=== PATIENT | female | born 1995 | race Two or more races ===

== ENCOUNTER 2023-12-18 15:15 | Emergency (ER) | payer OTHER ==
[~2023-12-18] VITALS: Ht 162.6 cm; Wt 72.6 kg
[2023-12-18] MEDS ORDERED: PROSAC (15:20)
[2023-12-18] MEDS ORDERED: LEVOTHYROXINE25 MCG (15:20)
[2023-12-18] MEDS ORDERED: TRAZODONE HCL5 GM (15:20)
[2023-12-18] MEDS ORDERED: CLONAZEPAM0.125 MG (15:20)
[2023-12-18] MEDS ORDERED: FAMOtidine 10 MG/ML (4ML VIAL) IV PUSH ONE (16:15)
[2023-12-18] MEDS ORDERED: METHYLPREDNISOLONE SOD SUCC 125 MG VIAL IV ONE (16:15)
[2023-12-18] MEDS ORDERED: KETOROLAC TROMETHAMINE 30 MG VIAL IV ONE (16:15)
[2023-12-18] MEDS ORDERED: 0.9 % SODIUM CHLORIDE 1,000 ML IV SCH (16:30)
[2023-12-18] MEDS ORDERED: ONDANSETRON HCL 2 MG/ML VIAL IV ONE (16:30)
[2023-12-18 17:14] LABS: HEMATOCRIT 28.8 % (36.0-45.00); HEMOGLOBIN 9.4 g/dL (12.0-15.00); MEAN CORPUSCULAR HEMOGLOBIN 19.6 pg (27.00-32.0); MEAN CORPUSCULAR HGB CONC 32.5 g/dl (32.0-36.0); RED BLOOD COUNT 4.79 M/uL (4.00-6.00); RED CELL DISTRIBUTION WIDTH 17.3 % (11.5-14.5)
[2023-12-18 17:22] LABS: ALBUMIN 3.7 gm/dL (3.4-5.0); BILIRUBIN TOTAL 0.98 mg/dL (0.3-1.2); BILIRUBIN,CONJUGATED 0.25 mg/dL (0.0-0.2); BILIRUBIN,UNCONJUGATED 0.73 mg/dL (0.0-0.6); CALCIUM 9.2 mg/dL (8.5-10.1); CREATININE SERUM 0.6 mg/dL (0.55-1.02); GFR 118.19; GLOBULINA 3.2 G/DL (2.4-3.5); POTASSIUM 4.28 mEq/L (3.5-5.1); TOTAL PROTEIN 6.9 gm/dL (6.4-8.2); TSH 2.38 uIU/mL (0.358-3.74)
[2023-12-18 17:33] LABS: MEAN CELL VOLUME 60.1 fL (80.00-100.00)
[2023-12-18 17:34] LABS: PLATELET COUNT 389 K/uL (150-450)
[2023-12-18] MEDS ORDERED: LEVSIN/SL0.125 MG SL (20:10)
[2023-12-18] MEDS ORDERED: CARAFATE1 GM PO (20:10)
[2023-12-18] MEDS ORDERED: PEPCID AC20 MG PO (20:10)
[2023-12-18] MEDS ORDERED: HYOSCYAMINE SULFATE 0.125 MG TAB.SUBL SL ONE (20:15)
== END 2023-12-18 20:14 | disposition home or self-care (01) ==
LOC: ER 15:16
PROVIDERS: General Practice
DX: K80.20 Calculus of gallbladder without cholecystitis without obstruction (principal); K29.70 Gastritis, unspecified, without bleeding

== ENCOUNTER 2024-01-03 14:01 | Emergency (ER) | payer OTHER ==
[~2024-01-03] VITALS: Ht 162.6 cm; Wt 68.0 kg
[~2024-01-03 14:01] MED LIST: CARAFATE1 GM PO; CLONAZEPAM0.125 MG; LEVOTHYROXINE25 MCG; LEVSIN/SL0.125 MG SL; PEPCID AC20 MG PO; PROSAC; TRAZODONE HCL5 GM
[2024-01-03] MEDS ORDERED: PROZAC20 MG (14:37)
[2024-01-03] MEDS ORDERED: TRAZODONE HCL50 MG (14:38)
[2024-01-03] MEDS ORDERED: SYNTHROID50 MCG (14:38)
[2024-01-03] MEDS ORDERED: ONDANSETRON HCL 2 MG/ML VIAL IV ONE (15:00)
[2024-01-03] MEDS ORDERED: 0.9 % SODIUM CHLORIDE 1,000 ML IV ONE (15:00)
[2024-01-03] MEDS ORDERED: KETOROLAC TROMETHAMINE 60 MG VIAL IM ONE ×2 (15:00→15:08)
[2024-01-03] MEDS ORDERED: FAMOtidine 10 MG/ML (4ML VIAL) IV ONE (15:00)
[2024-01-03] MEDS ORDERED: ONDANSETRON HCL 2 MG/ML VIAL ONE (15:07)
[2024-01-03] MEDS ORDERED: FAMOTIDINE/PF 20 MG/2 ML VIAL ONE (15:08)
[2024-01-03 15:41] LABS: HEMATOCRIT 26.1 % (36.0-45.00); MEAN CORPUSCULAR HGB CONC 33.1 g/dl (32.0-36.0); PLATELET COUNT 382 K/uL (150-450); RED BLOOD COUNT 4.49 M/uL (4.00-6.00); RED CELL DISTRIBUTION WIDTH 16.6 % (11.5-14.5)
[2024-01-03 15:42] LABS: HEMOGLOBIN 8.7 g/dL (12.0-15.00); MEAN CELL VOLUME 58.2 fL (80.00-100.00); MEAN CORPUSCULAR HEMOGLOBIN 19.3 pg (27.00-32.0)
[2024-01-03 16:11] LABS: ALBUMIN 3.7 gm/dL (3.4-5.0); ALKALINE PHOSPHATASE 36 U/L (50-136); ALT/SGPT 19 U/L (12-78); AMYLASE 38 U/L (25-115); ANION GAP 7 (10.0-20.0); AST/SGOT 14 U/L (15-37); BILIRUBIN TOTAL 0.64 mg/dL (0.3-1.2); BLOOD UREA NITROGEN 15 mg/dL (7-18); BUN CREA RATIO 22 (7.0-25.0); CARBON DIOXIDE 27 mEq/L (21-32); CHLORIDE 111 mmol/L (98-107); CREATININE SERUM 0.68 mg/dL (0.55-1.02); GFR 102.29; GLUCOSE FASTING 90 mg/dL (65-100); LIPASE 26 U/L (13-75); OSMOLALITY SERUM 282 MOSM/KG (275-295); POTASSIUM 3.77 mEq/L (3.5-5.1); SODIUM 141 mmol/L (136-145); TOTAL PROTEIN 6.7 gm/dL (6.4-8.2)
[2024-01-03 16:14] LABS: HCG QUANTITATIVE < 1 mUI/mL (1-3)
== END 2024-01-03 18:14 | disposition home or self-care (01) ==
LOC: ER 14:03
PROVIDERS: General Practice
DX: K80.20 Calculus of gallbladder without cholecystitis without obstruction (principal); K29.70 Gastritis, unspecified, without bleeding; E03.9 Hypothyroidism, unspecified; D64.89 Other specified anemias

== ENCOUNTER 2024-02-26 10:16 | Emergency (ER) | payer OTHER ==
[~2024-02-26] VITALS: Ht 162.6 cm; Wt 72.1 kg
[~2024-02-26 10:16] MED LIST changes: +PROZAC20 MG; +SYNTHROID50 MCG; +TRAZODONE HCL50 MG
[2024-02-26 10:50] VITALS: BP 117/68; O2SAT 100
[2024-02-26] MEDS ORDERED: LEVSIN/SL0.125 MG (10:50)
[2024-02-26] MEDS ORDERED: SUMATRIPTAN SUCCINATE 6 MG/0.5 ML VIAL SUBCUTANEO ONE (11:00)
[2024-02-26] MEDS ORDERED: KETOROLAC TROMETHAMINE 60 MG VIAL IM ONE (11:15)
[2024-02-26 12:33] LABS: HEMATOCRIT 30.4 % (36.0-45.00); HEMOGLOBIN 9.9 g/dL (12.0-15.00); MEAN CORPUSCULAR HEMOGLOBIN 19.4 pg (27.00-32.0); MEAN CORPUSCULAR HGB CONC 32.6 g/dl (32.0-36.0); PLATELET COUNT 390 K/uL (150-450); RED BLOOD COUNT 5.12 M/uL (4.00-6.00); RED CELL DISTRIBUTION WIDTH 17.4 % (11.5-14.5)
[2024-02-26 12:41] LABS: MEAN CELL VOLUME 59.4 fL (80.00-100.00)
[2024-02-26] MEDS ORDERED: DICLOFENAC SODI75 MG PO (12:52)
[2024-02-26] MEDS ORDERED: BUTALBIT-ACETA1 EACH PO (12:54)
== END 2024-02-26 13:27 | disposition home or self-care (01) ==
LOC: ER 10:18
PROVIDERS: General Practice
DX: G43.909 Migraine, unspecified, not intractable, without status migrainosus (principal)

== ENCOUNTER 2024-03-02 20:28 | Emergency (ER) | payer OTHER ==
[~2024-03-02] VITALS: Ht 162.6 cm; Wt 69.9 kg
[~2024-03-02 20:28] MED LIST changes: +BUTALBIT-ACETA1 EACH PO; +DICLOFENAC SODI75 MG PO; +LEVSIN/SL0.125 MG
[2024-03-02] MEDS ORDERED: KETOROLAC TROMETHAMINE 30 MG VIAL IM STA (23:16)
[2024-03-03] MEDS ORDERED: METOCLOPRAMIDE HCL 5 MG/ML VIAL IM STA (01:51)
[2024-03-03] MEDS ORDERED: hydrOXYzine PAMOATE 50 MG CAPSULE PO STA (01:52)
== END 2024-03-03 02:49 | disposition home or self-care (01) ==
LOC: ER 20:30
DX: G43.829 Menstrual migraine, not intractable, without status migrainosus (principal)

== ENCOUNTER 2024-05-26 19:31 | Emergency (ER) | payer OTHER ==
[~2024-05-26] VITALS: Ht 162.6 cm; Wt 68.9 kg
[2024-05-26] MEDS ORDERED: FAMOtidine 10 MG/ML (4ML VIAL) IV PUSH STA (21:55)
[2024-05-26] MEDS ORDERED: 0.9 % SODIUM CHLORIDE 1,000 ML IV STA (21:55)
[2024-05-26] MEDS ORDERED: ONDANSETRON HCL 2 MG/ML VIAL IV STA (21:56)
[2024-05-26] MEDS ORDERED: HYOSCYAMINE SULFATE 0.125 MG TAB.SUBL SL ONE (22:00)
[2024-05-26] MEDS ORDERED: ONDANSETRON HCL 2 MG/ML VIAL ONE (22:16)
[2024-05-26] MEDS ORDERED: FAMOTIDINE/PF 20 MG/2 ML VIAL ONE (22:16)
[2024-05-26] MEDS ORDERED: HYOSCYAMINE SULFATE 0.125 MG TAB.SUBL ONE (22:16)
[2024-05-26 23:17] LABS: HEMATOCRIT 29.8 % (36.0-45.00); MEAN CORPUSCULAR HEMOGLOBIN 19.7 pg (27.00-32.0); MEAN CORPUSCULAR HGB CONC 33.5 g/dl (32.0-36.0); PLATELET COUNT 239 K/uL (150-450); RED BLOOD COUNT 5.06 M/uL (4.00-6.00); RED CELL DISTRIBUTION WIDTH 16.5 % (11.5-14.5)
[2024-05-26 23:22] LABS: AMYLASE 40 U/L (25-115); LIPASE 31 U/L (13-75)
[2024-05-26 23:24] LABS: INR 1.03; PARTIAL THROMBOPLASTIN TIME 27.1 SECONDS (22.0-34.0); PROTHROMBIN TIME 11.2 SECONDS (9.0-11.5)
[2024-05-26 23:31] LABS: MEAN CELL VOLUME 58.9 fL (80.00-100.00)
[2024-05-27] MEDS ORDERED: KETOROLAC TROMETHAMINE 60 MG VIAL IM STA (05:04)
[2024-05-27] MEDS ORDERED: KETOROLAC TROMETHAMINE 60 MG VIAL IM ONE (05:08)
[2024-05-27] MEDS ORDERED: KETO10TA2 PO (06:38)
== END 2024-05-27 06:43 ==
LOC: ER 19:33
DX: R10.9 Unspecified abdominal pain (principal); K80.80 Other cholelithiasis without obstruction
CPT/HCPCS: 36415; 74176; 96365; 96366; 99284; J1885; J2405; J3490; J7030

== ENCOUNTER 2024-11-04 12:47 | Emergency (ER) | payer OTHER ==
[~2024-11-04] VITALS: Ht 162.6 cm; Wt 73.9 kg
[~2024-11-04 12:47] MED LIST changes: +KETO10TA2 PO
== END 2024-11-04 14:56 | disposition home or self-care (01) ==
LOC: ER 12:56
DX: D64.89 Other specified anemias (principal)